=== PATIENT | male | born 1970 | race Caucasian/White ===

== ENCOUNTER 2017-08-06 08:15 | Day surgery (SDC) | payer BC ==
[~2017-08-06 08:15] MED LIST: Acetaminophen/HYDROcodone 325-5 MG Tab PO PRN; Lactated Ringers 1,000 ML IV SCH; ceFAZolin 2 GM in Premix Bag 1 BAG IV SCH
--- NOTE | 2017-08-06 09:22 | PCM.PREANE ---
Preanesthetic Assessment - Anesthesia/Transfusion/Family Hx Anesthesia History: No Prior Anesthesia Family History of Anesthesia Reaction: No Transfusion History: No Prior Transfusion(s) - Review of Systems General: No Symptoms Pulmonary: No Symptoms Cardiovascular: No Symptoms Gastrointestinal: No Symptoms Neurological: No Symptoms Other: Reports: None - Physical Assessment NPO Status Date: 08/05/17 O2 Sat by Pulse Oximetry: 96 Respiratory Rate: 16 Vital Signs: Last Vital Signs Temp 36.5 C 08/06/17 08:56 Pulse 97 08/06/17 08:56 Resp 16 08/06/17 08:56 BP 146/96 H 08/06/17 09:02 Pulse Ox 96 08/06/17 08:56 Height: 1.73 m Weight: 95.254 kg ASA Class: 2 Mental Status: Alert & Oriented x3 Airway Class: Mallampati = 2 Dentition: Reports: Normal Dentition ROM/Head Extension: Full Lungs: Clear to Auscultation, Normal Respiratory Effort Cardiovascular: Regular Rate, Regular Rhythm - Allergies Allergies/Adverse Reactions: Allergies Allergy/AdvReac Type Severity Reaction Status Date / Time No Known Allergies Allergy Verified 07/31/17 15:35 - Anesthesia Plan Pre-Op Medication Ordered: None - Acknowledgements Anesthesia Type Planned: General Anesthesia Pt an Appropriate Candidate for the Planned Anesthesia: Yes Alternatives and Risks of Anesthesia Discussed w Pt/Guardian: Yes Pt/Guardian Understands and Agrees with Anesthesia Plan: Yes PreAnesthesia Questionnaire Cardiovascular History: Reports: Hypertension Gastrointestinal History: Reports: GERD Genitourinary History: Reports: None Musculoskeletal History: Reports: Fracture Other Musculoskeletal History: hx fx collarbone, presently has fx rt fibula Endocrine/Metabolic History: Reports: Obesity/BMI 30+ - Past Surgical History Head Surgeries/Procedures: Reports: None Male Surgical History: Reports: Vasectomy - SUBSTANCE USE Smoking Status *Q: Former Smoker Recreational Drug Use History: No - HOME MEDS Home Medications: Home Meds Acetaminophen [Tylenol] 2 tab PO ASDIRECTED PRN 07/31/17 [History] Esomeprazole Magnesium [Nexium] 1 tab PO ASDIRECTED PRN 07/31/17 [History] Ibuprofen 2 tab PO ASDIRECTED PRN 07/31/17 [History] amLODIPine Besylate [Amlodipine Besylate] 5 mg PO DAILY 07/31/17 [History] - CURRENT (IN HOUSE) MEDS Current Meds: Current Medications Hydrocodone Bitart/Acetaminophen ([place] 325-5 Mg) 1 - 2 tab PO Q4H PRN PRN Reason: Pain Cefazolin Sodium/Dextrose 2 gm (/ Premix) 50 mls @ 100 mls/hr IV ONCALL ZAIRA Lactated Ringer's (Ringers, Lactated) 1,000 mls @ 100 mls/hr IV ASDIRECTED ZAIRA
[2017-08-06] MEDS ORDERED: Lidocaine 2% 5 ML SDV ONE (09:41)
[2017-08-06] MEDS ORDERED: Midazolam 1 MG/ML 2 ML SDV ONE (09:41)
[2017-08-06] MEDS ORDERED: fentaNYL 100 MCG/2 ML SDV ONE (09:41)
[2017-08-06] MEDS ORDERED: Propofol 200 MG/20 ML SDV ONE (09:41)
[2017-08-06] MEDS ORDERED: fentaNYL 250 MCG/5 ML SDV ONE (09:41)
[2017-08-06] MEDS ORDERED: ceFAZolin/Dextrose,Iso-Osmotic 2 GM/50 ML Duplex Bag IV ONE (09:42)
[2017-08-06] MEDS ORDERED: Ondansetron 4 MG/2 ML SDV ONE (09:42)
[2017-08-06] MEDS ORDERED: Ketorolac 30 MG/ML SDV ONE (09:42)
[2017-08-06] MEDS ORDERED: HYDROmorphone 2 MG/ML SDV ONE (11:22)
[2017-08-06] MEDS ORDERED: fentaNYL 100 MCG/2 ML SDV IVPUSH PRN (11:38)
--- NOTE | 2017-08-06 12:49 | PCM.OPNOTE ---
- General Post-Op/Procedure Note Date of Surgery/Procedure: 08/06/17 Operative Procedure(s): ORIF R distal fibula with repair of syndesmosis Post-Op Diagnosis: R distal fibula, R syndesmotic injury Anesthesia Technique: General ET Tube Primary Surgeon: Kristin Curran Senior Php Developer: Zuly Hunt in mLs: 10 Condition: Good Free Text/Narrative:: tt=50 min #[id number]
--- NOTE | 2017-08-06 15:29 | CR ---
EXAMINATION: Right ankle HISTORY: ORIF COMPARISON: 07/25/2017 TECHNIQUE: 7 views. FINDINGS/IMPRESSION: Operative control films demonstrate screw and plate fixation of a distal fibular fracture. A syndesmotic anchor is noted.
--- NOTE | 2017-08-06 17:03 | PCM48HPAN ---
Post Anesthesia Note - EVALUATION WITHIN 48HRS OF ANESTHETIC Vital Signs in Normal Range: Yes Patient Participated in Evaluation: Yes Respiratory Function Stable: Yes Airway Patent: Yes Cardiovascular Function Stable: Yes Hydration Status Stable: Yes Pain Control Satisfactory: Yes Nausea and Vomiting Control Satisfactory: Yes Mental Status Recovered: Yes Resp Rate: 16
--- NOTE | 2017-08-06 17:03 | PCM.POSTAN ---
POST ANESTHESIA ASSESSMENT - MENTAL STATUS Mental Status: Alert, Oriented - RESPIRATORY Respiratory Status: Respiratory Rate WNL, Airway Patent, O2 Saturation Stable - CARDIOVASCULAR CV Status: Pulse Rate WNL, Blood Pressure Stable - GASTROINTESTINAL GI Status: No Symptoms - POST OP HYDRATION Hydration Status: Adequate & Stable
--- NOTE | 2017-08-06 19:26 | OR ---
SURGEON: Kristin Curran MD DATE OF PROCEDURE: 08/06/2017 PREOPERATIVE DIAGNOSIS: Right distal fibula fracture. POSTOPERATIVE DIAGNOSES: 1. Right distal fibula fracture. 2. Right ankle syndesmotic injury. PROCEDURE: Open reduction and internal fixation of right distal fibula with repair of syndesmosis. SOIL CONSERVATION AIDE: Zuly Hunt PA-C ANESTHESIA: General. ESTIMATED BLOOD LOSS: 10 mL. TOURNIQUET TIME: 50 minutes. COMPLICATIONS: None. DVT PROPHYLAXIS: PAS boot to the nonoperative leg. IMPLANTS USED: Elizabeth 9-hole 1/3 semitubular plate with combination of 3.5 mm cortical and 4.0 mm cancellous screws and a Biomet ZipTight ankle syndesmosis fixation system. BRIEF HISTORY: Scott is a 47-year-old male, who injured his right ankle. X-rays did show a Renee C fracture of the distal fibula with widening of the ankle mortise. At that time, I recommended surgical treatment. The risks and goals of the procedure were discussed with the patient and were documented preoperatively. He agreed to proceed. DESCRIPTION OF PROCEDURE: The patient was properly identified and brought to the operating room. He was transferred from the OR cart and placed on the operating table in supine position. General anesthesia was administered. After adequate anesthesia was obtained, a well-padded tourniquet was applied to the right lower extremity. The right lower extremity was then prepped in standard fashion using ChloraPrep solution. It was then sterilely draped. A time-out was performed to ensure correct site and procedure. Preoperative antibiotics were given. The surgical site had been marked preoperatively. An Esmarch was used to exsanguinate the right lower extremity, the tourniquet was inflated to 250 mmHg. An incision was made over the lateral aspect of the ankle, centered over the incision. Subcutaneous tissues were dissected. Care was taken to look for the superficial peroneal nerve and this was not encountered. The fracture was visualized. A large butterfly fragment was noted posterior medially. The fracture site was opened and the fracture hematoma was evacuated with irrigation. Bone reduction clamps were then used to provide temporary reduction of the fracture. A 3.5 mm cortical screw was placed in standard lag fashion for provisional fixation. Due to the posterior medial comminution, this screw did not provide adequate fixation and was removed. I felt that a 9-hole plate would be acceptable as it was a high potential that we needed to repair the syndesmosis. A 3.5 mm screw was placed into the distal fragment. The fracture was then held in a reduced position to keep the fibula out to length and a proximal screw was placed. C-arm imaging was checked and this confirmed good reduction of the fracture. The fibula was brought out to length. The 4.0 mm screws were used at the distal end of the plate and 3.5 mm screws were used proximally. Once we had good fixation of the fracture, the ankle syndesmosis was checked using C-arm fluoroscopy. An external rotation stress view showed no tib-fib overlap with widening of the medial clear space, consistent with a syndesmotic injury. I elected to proceed with syndesmotic repair. A large periarticular bone clamp was then placed onto the medial and lateral malleoli and this was tightened with the foot kept in a slightly plantar flexed position. C-arm showed good reduction of the ankle mortise. A 3.2 mm drill was then used to perform a path through the four cortices. The ZipLoop fixation system was then passed and the button was deployed onto the medial aspect of the tibia. This was in a slightly posterior position, however, it was flush with the bony surface. This was then tightened. The periarticular clamp was then removed. The ankle was again evaluated under live fluoroscopy and no further widening of the syndesmosis was noted. Final C-arm images confirmed acceptable reduction of the fracture with good reduction of the ankle mortise. The wound was then copiously irrigated with saline solution. A 0 Vicryl was used to close the deep tissues. A 2-0 Monocryl was used to close the subcutaneous tissues, and the skin was closed with elvie. Xeroform gauze was placed over the wound and a bulky dressing was applied. Tourniquet was deflated prior to final wound closure and no additional bleeding was noted. The patient was placed in a well-padded posterior splint with medial and lateral stabilizing slabs. He was awakened from his anesthetic and transferred back to the operating room cart. He was brought to recovery room in stable condition. All needle and sponge counts were correct. THAIS / STAN /[id number]
== END 2017-08-06 14:00 | disposition home or self-care (01) ==
LOC: MW.SDS 08:15
PROVIDERS: ATTEND Orthopaedic Surgery
DX: S82.831A Other fracture of upper and lower end of right fibula, initial encounter for closed fracture (principal); S93.401A Sprain of unspecified ligament of right ankle, initial encounter; E78.5 Hyperlipidemia, unspecified; I10 Essential (primary) hypertension; E78.00 Pure hypercholesterolemia, unspecified; F17.210 Nicotine dependence, cigarettes, uncomplicated; K21.9 Gastro-esophageal reflux disease without esophagitis; E66.9 Obesity, unspecified; Z68.31 Body mass index [BMI] 31.0-31.9, adult; Z79.899 Other long term (current) drug therapy
CPT/HCPCS: 27792; 27829; 76000; J0690; J1170; J1885; J2250; J2405; J3010; J7120; 01480; C1713; C1776; J2704

== ENCOUNTER 2018-10-06 13:20 | Emergency (ER) | payer BC ==
[2018-10-06] MEDS ORDERED: Diphtheria,Pertussis(Acell),Tetanus Vaccine 0.5 ML Syringe IM ONE (13:42)
[2018-10-06] MEDS ORDERED: Bacitracin Oint 1 GM U/D Packet TOP ONE (13:44)
--- NOTE | 2018-10-06 13:50 | EDM.PDOC ---
ED HPI GENERAL MEDICAL PROBLEM - General Chief Complaint: Laceration Stated Complaint: CUT FINGER AND THUMB Time Seen by Provider: 10/06/18 13:38 - History of Present Illness INITIAL COMMENTS - FREE TEXT/NARRATIVE: HISTORY AND PHYSICAL: History of present illness: The patient is a 48-year-old male as he thinks he got his last one 5 years ago and who presents with complaints of lacerations to his left thumb and index finger that occurred at home using a saw. The patient said he is right-hand dominant and was in his usual state of good health with no systemic complaints prior to these events. He said the saw cut his thumb and caused some superficial cuts to the dorsal aspect of his left index finger. He can range of motion the digits and has no other injuries to the remainder of the digits of the left hand. He says there is pain only to the thumb area. Review of systems: As per history of present illness and below otherwise all systems reviewed and negative. Past medical history: As per history of present illness and as reviewed below otherwise noncontributory. Surgical history: As per history of present illness and as reviewed below otherwise noncontributory. Social history: No reported history of drug or alcohol abuse. Family history: As per history of present illness and as reviewed below otherwise noncontributory. Physical exam: General: Well-developed well-nourished man who is nontoxic and vital signs are noted by me HEENT: Atraumatic, normocephalic, , negative for conjunctival pallor or scleral icterus, mucous membranes moist, throat clear, neck supple, nontender, trachea midline. Lungs: Clear to auscultation, breath sounds equal bilaterally, chest nontender. Heart: S1S2, regular rate and rhythm no overt murmurs Abdomen: Soft, nondistended, nontender. Pelvis: Deferred Genitourinary: Deferred. Rectal: Deferred. Extremities: Atraumatic, with full range of motion of all extremities with the exception of the left thumb and index finger. At the left thumb at the PIP joint on the dorsal aspect there is a laceration seen which is a total length of 3.5 cm . The patient can range of motion and it does extend to the subcutaneous tissue but does not appear to involve the joint space. The skin edges are slightly jagged. There is no soft tissue swelling or bony tenderness or defects. At the left index finger there are 3 superficial lacerations seen in this sequence near the PIP joint with one measuring 1.0 cm and the other 2 measuring 2.0 cm each. These do not need suture closure as they're very superficial and will just be given wound care. The patient can range of motion the index finger without defects or deformities and there are no palpable bony deformities or soft tissue swelling. Neurovascular unremarkable. Neuro: Awake, alert, oriented. Cranial nerves II through XII unremarkable. Cerebellum unremarkable. Motor and sensory unremarkable throughout. Exam nonfocal. Diagnostics: [] Therapeutics: Tdap, lidocaine without epinephrine for suturing, bacitracin and tube gauze to both digits Procedure note: After the wound was cleansed by nursing and 1% lidocaine without epinephrine was infused in the thumb in a local fashion, the wound was prepped and draped in sterile fashion and was explored and no foreign bodies were appreciated. The skin edges were reapproximated using a total number of # 6 sutures in a simple interrupted fashion of 4-0 nylon . There were no complications and the patient tolerated the procedure well. Procedure was performed by Leslye ROY. Bacitracin and tube gauze was applied to this finger as well as to the index finger where the superficial lacerations are noted. I Did discuss with the patient and at bedside that we will place him on Keflex as it does not appear to go deep enough to Violate the joint space but I feel that prophylaxis is indicated due to the dirty wound and the location of the laceration. Impression: Lacerations of left index and thumb fingers Definitive disposition and diagnosis as appropriate pending reevaluation and review of above. - Related Data Allergies Allergy/AdvReac Type Severity Reaction Status Date / Time No Known Allergies Allergy Verified 10/06/18 13:26 Home Meds: Home Meds . [No Known Home Meds] 10/06/18 [History] Past Medical History Cardiovascular History: Reports: Hypertension Gastrointestinal History: Reports: GERD Genitourinary History: Reports: None Musculoskeletal History: Reports: Fracture Other Musculoskeletal History: hx fx collarbone, presently has fx rt fibula Endocrine/Metabolic History: Reports: Obesity/BMI 30+ - Infectious Disease History Infectious Disease History: Reports: Chicken Pox - Past Surgical History Head Surgeries/Procedures: Reports: None Male Surgical History: Reports: Vasectomy Social & Family History - Family History Family Medical History: Noncontributory - Tobacco Use Smoking Status *Q: Never Smoker - Recreational Drug Use Recreational Drug Use: No ED ROS GENERAL - Review of Systems Review Of Systems: ROS reveals no pertinent complaints other than HPI. ED EXAM, SKIN/RASH Exam: See Below (See dictation) Course - Vital Signs Last Recorded V/S: Last Vital Signs Temp 35.7 C 10/06/18 13:27 Pulse 92 10/06/18 13:27 Resp 18 10/06/18 13:27 BP 145/107 H 10/06/18 13:27 Pulse Ox 98 10/06/18 13:27 - Orders/Labs/Meds Orders: Active Orders 24 hr Category Date Time Status Communication Order [RC] STAT Care 10/06/18 13:44 Active Vaccines to be Administered [RC] PER UNIT ROUTINE Care 10/06/18 13:42 Active Meds: Medications Discontinued Medications Generic Name Dose Route Start Last Admin Trade Name Freq PRN Reason Stop Dose Admin Bacitracin 2 dose 10/06/18 13:44 10/06/18 14:03 Bacitracin Oint 1 Gm TOP 10/06/18 13:45 2 dose ONETIME ONE Administration Diphtheria/Tetanus/Acell Pertussis 0.5 ml 10/06/18 13:42 10/06/18 14:03 Adacel IM 10/06/18 13:43 0.5 ml .ONCE ONE Administration Lidocaine HCl 5 ml 10/06/18 13:44 10/06/18 14:02 Xylocaine-Mpf 1% INJECT 10/06/18 13:45 5 ml ONETIME ONE Administration Departure - Departure Time of Disposition: 14:32 Disposition: Home, Self-Care 01 Condition: Good Clinical Impression: Finger laceration Qualifiers: Encounter type: initial encounter Finger: unspecified finger Damage to nail status: without damage Foreign body presence: without foreign body Laterality: left Qualified Code(s): S61.219A - Laceration without foreign body of unspecified finger without damage to nail, initial encounter - Discharge Information Instructions: Laceration Care, Adult, [id number] Referrals: PCP,Unknown [Primary Care Provider] - Forms: ED Department Discharge Additional Instructions: The following information is given to patients seen in the emergency department who are being discharged to home. This information is to outline your options for follow-up care. We provide all patients seen in our emergency department with a follow-up referral. The need for follow-up, as well as the timing and circumstances, are variable depending upon the specifics of your emergency department visit. If you don't have a primary care physician on staff, we will provide you with a referral. We always advise you to contact your personal physician following an emergency department visit to inform them of the circumstance of the visit and for follow-up with them and/or the need for any referrals to a consulting specialist. The emergency department will also refer you to a specialist when appropriate. This referral assures that you have the opportunity for followup care with a specialist. All of these measure are taken in an effort to provide you with optimal care, which includes your followup. Under all circumstances we always encourage you to contact your private physician who remains a resource for coordinating your care. When calling for followup care, please make the office aware that this follow-up is from your recent emergency room visit. If for any reason you are refused follow-up, please contact the [facility] emergency department at and ask to speak to the emergency department charge nurse. [facility] [place] [address] The dressing was placed on in the ED should remain in place the next 24 hours and then remove it and cleanse with mild soap and water pat dry and apply bacitracin or Neosporin. Please cleanse the wounds at least twice a day padding dry and using the ointment and then stop the ointment after 2 days. Please do not use Band-Aids and if you must cover the areas please use readable gauze dressing. The sutures are removed and one week either here in the emergency department or with our hand specialist. He may follow up with her at any time as you choose using resources given to above. Return to the ER sooner as needed as discussed. These take the Keflex you have been given for prophylaxis - My Orders Last 24 Hours: My Active Orders 10/06/18 13:42 Vaccines to be Administered [RC] PER UNIT ROUTINE 10/06/18 13:44 Communication Order [RC] STAT - Assessment/Plan Last 24 Hours: My Active Orders 10/06/18 13:42 Vaccines to be Administered [RC] PER UNIT ROUTINE 10/06/18 13:44 Communication Order [RC] STAT
== END 2018-10-06 14:33 | disposition home or self-care (01) ==
LOC: MW.ED 13:20
DX: S61.012A Laceration without foreign body of left thumb without damage to nail, initial encounter (principal); S61.211A Laceration without foreign body of left index finger without damage to nail, initial encounter; I10 Essential (primary) hypertension; Z68.31 Body mass index [BMI] 31.0-31.9, adult; Z23 Encounter for immunization; W26.8XXA Contact with other sharp object(s), not elsewhere classified, initial encounter
CPT/HCPCS: 12002; 90471; 90715; 99283; J2001